=== PATIENT | male | born 1975 | race Caucasian/White ===

== ENCOUNTER 2018-07-31 22:27 | Emergency (ER) | payer MEDICARE, MEDICAID ==
[2018-07-31 23:05] LABS: ABSOLUTE BASOPHILS # (AUTO) 0.1 10^3/uL (0.0-0.2); ABSOLUTE EOSINOPHILS # (AUTO) 0.2 10^3/uL (0.0-0.6); ABSOLUTE LYMPHOCYTES (AUTO) 2.3 10^3/uL (0.5-4.7); ABSOLUTE MONOCYTES (AUTO) 0.6 10^3/uL (0.1-1.4); ABSOLUTE NEUT (AUTO) 3.6 10^3/uL (1.7-8.2); BASOPHILS % (AUTO) 1.1 % (0-2); EOSINOPHILS % (AUTO) 3.2 % (0-6); HEMATOCRIT 41.4 % (37.9-51.0); HEMOGLOBIN 14.2 g/dL (13.5-17.0); LYMPHOCYTES % (AUTO) 34.2 % (13-45); MEAN CORPUSCULAR HEMOGLOBIN 31.1 pg (27.0-33.4); MEAN CORPUSCULAR HGB CONC 34.3 g/dL (32.0-36.0); MEAN CORPUSCULAR VOLUME 91 fl (80-97); MONOCYTES % (AUTO) 9.3 % (3-13); PLATELET COUNT 251 10^3/uL (150-450); RED BLOOD COUNT 4.57 10^6/uL (4.35-5.55); RED CELL DISTRIBUTION WIDTH 13.2 % (11.5-14.0); SEGMENTED NEUTROPHILS % (AUTO) 52.2 % (42-78); TOTAL CELLS COUNTED % (AUTO) 100 %; WHITE BLOOD COUNT 6.9 10^3/uL (4.0-10.5)
[2018-07-31 23:26] LABS: ALANINE AMINOTRANSFERASE 23 U/L (21-72); ALKALINE PHOSPHATASE 95 U/L (38-126); ANION GAP 8 (5-19); ASPARTATE AMINO TRANSFERASE 20 U/L (17-59); BILIRUBIN,DIRECT 0.2 mg/dL (0.0-0.4); BILIRUBIN,TOTAL 0.6 mg/dL (0.2-1.3); BLOOD UREA NITROGEN 12 mg/dL (7-20); CALCIUM 9.2 mg/dL (8.4-10.2); CARBON DIOXIDE 27 mmol/L (22-30); CHLORIDE 104 mmol/L (98-107); CREATINE KINASE 124 U/L (55-170); GLUCOSE 100 mg/dL (75-110); POTASSIUM 3.8 mmol/L (3.6-5.0); SODIUM 138.7 mmol/L (137-145); TOTAL PROTEIN 6.9 g/dL (6.3-8.2)
[2018-07-31 23:29] LABS: ALCOHOL < 10 mg/dL (NONE DETECTED)
--- NOTE | 2018-07-31 23:41 | ER Document Report ---
ED General - General Chief Complaint: S/S of Possible Stroke Stated Complaint: WEAKNESS Time Seen by Provider: 07/31/18 22:50 Primary Care Provider: KELLIE CABRERA MD [Primary Care Provider] - Follow up as needed Cannot obtain history due to: Uncooperative Notes: Patient is a 42-year-old male with a past medical history of morbid obesity, previous TIAs, anxiety, and also states "I black out a lot". The patient states that ever since he had multiple TIAs he has frequent memory loss which his primary doctor is attributed to anxiety. He states that he takes clonazepam for this although he has not taken it today. The patient gives a waxing and waning history over the course of 20 minutes at the bedside. He states for the past 2 days he has felt like he "just cannot get things together". He states that he often has these types of episodes but they usually only last 1 day. States "I know he will not believe it but actually drove myself here to the hospital". The patient then proceeds to give me his full list of medications from memory, tells me his primary care doctor is full name, is able to tell me with whom he lives and their phone names, able to tell me his street address, and is completely oriented otherwise. However, when I do ask him the year the patient does take approximately 30 seconds to tell me the year. He denies that eating seems to improve or worsen his sensation of being disoriented. In triage the patient also stated that he had weakness in his bilateral hands. When asking how long this is been going on he says for 3 to 4 weeks. He has not seen his primary care doctor regarding today's concerns. Patient regards to symptoms as being severe. Constant in nature. Denies head or neck trauma. No alcohol or drug abuse. TRAVEL OUTSIDE OF THE [place] IN LAST 30 DAYS: No Past Medical History - General Information source: Patient - Social History Smoking Status: Never Smoker Frequency of alcohol use: None Drug Abuse: None Lives with: Family Family History: Reviewed & Not Pertinent Review of Systems - Review of Systems Notes: Constitutional: Negative for fever. HENT: Negative for sore throat. Eyes: Negative for visual changes. Cardiovascular: Negative for chest pain. Respiratory: Negative for shortness of breath. Gastrointestinal: Negative for abdominal pain, vomiting or diarrhea. Genitourinary: Negative for dysuria. Musculoskeletal: Negative for back pain. Skin: Negative for rash. Neurological: Positive for reported confusion, bilateral hand weakness 10 point ROS negative except as marked above and in HPI. Physical Exam - Vital signs Vitals: Temp Pulse Resp BP Pulse Ox 98.2 F 100 18 141/92 H 97 07/31/18 22:34 07/31/18 22:34 07/31/18 22:34 07/31/18 22:34 07/31/18 22:34 Interpretation: Hypertensive Notes: PHYSICAL EXAMINATION: GENERAL: Resting comfortably in no distress. HEAD: Atraumatic, normocephalic. EYES: Pupils equal round and reactive to light, extraocular movements intact, sclera anicteric, conjunctiva are normal. ENT: nares patent, oropharynx clear without exudates. Moist mucous membranes. NECK: Normal range of motion, supple without lymphadenopathy LUNGS: Breath sounds clear to auscultation bilaterally and equal. No wheezes rales or rhonchi. HEART: Regular rate and rhythm without murmurs ABDOMEN: Soft, nontender, normoactive bowel sounds. No guarding, no rebound. No masses appreciated. EXTREMITIES: Normal range of motion, no pitting or edema. No cyanosis. NEUROLOGICAL: Face symmetric. Tongue protrudes midline. Extraocular motions intact. Pupils are 2 mm and equally reactive. Normal speech, normal gait. 5 out of 5 strength in both the distal and proximal upper and lower extremities bilaterally. Sensation is grossly intact throughout. Finger to nose testing normal. Pronator drift normal. PSYCH: Alert, as described in history the patient states he is having disorientation but has full orientation x4 SKIN: Warm, Dry, normal turgor, no rashes or lesions noted. Course - Re-evaluation Re-evalutation: 07/31/18 23:39 Patient presents with allegations that he is having significant memory loss although does not appear to have any cognitive impairment of any kind during ex amination. The patient does not appear to be delirious nor does he have any form of cognitive impairment. He apparently has the symptoms "all the time" but is more concerned that he has been having them today for greater than 24 hours. I am concerned that there is a psychiatric component to the patient's presentation particular given lack of any objective evidence of true disorientation or confusion. He has absolutely no focal neurologic deficits on examination. No sensory deficits. His labs, CT head all unremarkable. Vitals are within normal limits. Exam, history and work-up are inconsistent with acute CVA, meningitis, encephalitis, brain abscess or alternative life-threatening condition. I have advised the patient to follow with his primary care doctor regarding this long-standing issue. At this time will discharge with return precautions and follow-up recommendations. Verbal discharge instructions given a the bedside and opportunity for questions given. Medication warnings reviewed. Patient is in agreement with this plan and has verbalized understanding of return precautions and the need for primary care follow-up in the next 24-72 hours. - Vital Signs Vital signs: Temp Pulse Resp BP Pulse Ox 98.2 F 100 18 141/92 H 97 07/31/18 22:34 07/31/18 22:34 07/31/18 22:34 07/31/18 22:34 07/31/18 22:34 - Laboratory Result Diagrams: 07/31/18 22:55 07/31/18 22:55 Laboratory results interpreted by me: 07/31/18 08/01/18 22:55 01:31 Ammonia < 8.7 L Ur Leukocyte Esterase TRACE H Discharge - Discharge Clinical Impression: Drowsiness, Morbid obesity, History of TIA (transient ischemic attack), Weakness Condition: Stable Disposition: HOME, SELF-CARE Additional Instructions: He was seen today for complaints of feeling disoriented or having decreased memory. There is no evidence at the time of your evaluation of disorientation, stroke, or any additional concerns. Your labs, CAT scan of your head, are all normal. The exact cause of your symptoms is uncertain but does not appear to be from a life-threatening condition, an acute stroke, seizures or any alternative concern at this time. However the exact cause is uncertain and she should therefore have a low threshold to return to the emergency department for any new or worsening symptoms. It is also important that you follow-up with your primary care doctor within the next 24 to 48 hours for reassessment. You should return immediately if you develop focal weakness, severe headache, fever of greater than 100.4 F, persistent vomiting, or any other symptoms that are concerning to you. Referrals: KELLIE CABRERA MD [Primary Care Provider] - Follow up tomorrow
--- NOTE | 2018-08-01 01:02 | RADIOLOGY REPORT (SQ) ---
CT HEAD WITHOUT IV CONTRAST EXAM DATE: 07/31/2018 10:51 PM CDT HISTORY: AMS. COMPARISON: None. TECHNIQUE: CT scan of the brain without IV contrast. This exam was performed according to our departmental dose-optimization program, which includes automated exposure control, adjustment of the mA and/or kV according to patient size and/or use of iterative reconstruction technique. FINDINGS: The ventricles, cisterns, and sulci are age-appropriate. No evidence of acute infarction, intracranial hemorrhage, extra-axial fluid collection, or midline shift. No air-fluid levels are seen in the paranasal sinuses to suggest acute sinusitis. No depressed skull fracture. IMPRESSION: No acute intracranial findings.
[2018-08-01 01:42] LABS: APPEARANCE,URINE CLEAR; BILIRUBIN,URINE NEGATIVE (NEGATIVE); COLOR,URINE YELLOW; GLUCOSE, URINE NEGATIVE (NEGATIVE); KETONES,URINE NEGATIVE (NEGATIVE); LEUKOCYTE ESTERASE,URINE TRACE (NEGATIVE); NITRITE,URINE NEGATIVE (NEGATIVE); PROTEIN,URINE NEGATIVE (NEGATIVE); URINE SPECIFIC GRAVITY 1.024; UROBILINOGEN,URINE NEGATIVE mg/dL (<2.0)
[2018-08-01 01:57] LABS: URINE AMPHETAMINES SCREEN NEGATIVE; URINE BARBITURATES SCREEN NEGATIVE; URINE BENZODIAZEPINES SCREEN UNCONFIRMED POSITIVE; URINE COCAINE SCREEN NEGATIVE; URINE MARIJUANA (THC) SCREEN NEGATIVE; URINE METHADONE SCREEN NEGATIVE; URINE PHENCYCLIDINE SCREEN NEGATIVE
[2018-08-01 03:06] VITALS: BP 135/97
== END 2018-08-01 03:06 | disposition home or self-care (01) ==
LOC: ER 22:27
DX: R53.1 Weakness (principal); R40.0 Somnolence; Z86.73 Personal history of transient ischemic attack (TIA), and cerebral infarction without residual deficits; E66.01 Morbid (severe) obesity due to excess calories
CPT/HCPCS: 36415; 70450; 80053; 80307; 81001; 82140; 82550; 84484; 85025; 99285

== ENCOUNTER 2018-12-13 15:52 | Emergency (ER) | payer MEDICARE, MEDICAID ==
[2018-12-13 15:56] VITALS: BP 141/69
--- NOTE | 2018-12-13 16:05 | ER Document Report ---
ED Medical Screen (RME) - General Chief Complaint: Fall Stated Complaint: FALL/HEAD AND BACK PAIN Time Seen by Provider: 12/13/18 16:01 Primary Care Provider: KELLIE CABRERA MD [Primary Care Provider] - Follow up as needed Mode of Arrival: Ambulatory Information source: Patient Notes: 43-year-old male presented to ED for complaint of head and back pain. He states he was a foot up on a ladder when his mastiff Ojebuoboh from under him causing him to fall about 8 feet. He states he did lose consciousness at the time but he is unaware of how long because no one else besides the mastiff was there with him. He states this was Wednesday when he fell. He thought he could take care of himself but he is getting more of a headache, back pain, and blurred vision and nausea. States he is also so been off balance a little. He is alert and oriented and answering questions appropriately at this time. States he has tramadol from his chronic back pain and he took that at the house. He states he took his anxiety medicine also. He states he smokes 3 cigarettes he is quitting, he does no drugs and he drinks maybe 1 beer on those Wednesday with his father. I have greeted and performed a rapid initial assessment of this patient. A comprehensive ED assessment and evaluation of the patient, analysis of test results and completion of medical decision making process will be conducted by an additional ED providers. TRAVEL OUTSIDE OF THE [place] IN LAST 30 DAYS: No - Related Data Allergies/Adverse Reactions: No Known Allergies Allergy (Verified 12/13/18 15:58) Past Medical History Renal/ Medical History: Denies: Hx Peritoneal Dialysis Physical Exam - Vital signs Vitals: Temp Pulse Resp BP Pulse Ox 97.6 F 79 18 141/69 H 100 12/13/18 15:55 12/13/18 15:55 12/13/18 15:55 12/13/18 15:55 12/13/18 15:55 Course - Vital Signs Vital signs: Temp Pulse Resp BP Pulse Ox 97.6 F 79 18 141/69 H 100 12/13/18 15:55 12/13/18 15:55 12/13/18 15:55 12/13/18 15:55 12/13/18 15:55 Doctor's Discharge - Discharge Referrals: KELLIE CABRERA MD [Primary Care Provider] - Follow up as needed
[2018-12-13 16:35] LABS: ABSOLUTE BASOPHILS # (AUTO) 0.1 10^3/uL (0.0-0.2); ABSOLUTE EOSINOPHILS # (AUTO) 0.1 10^3/uL (0.0-0.6); ABSOLUTE LYMPHOCYTES (AUTO) 2.3 10^3/uL (0.5-4.7); ABSOLUTE MONOCYTES (AUTO) 0.6 10^3/uL (0.1-1.4); ABSOLUTE NEUT (AUTO) 5.4 10^3/uL (1.7-8.2); BASOPHILS % (AUTO) 1.1 % (0-2); EOSINOPHILS % (AUTO) 1.3 % (0-6); HEMATOCRIT 45.7 % (37.9-51.0); HEMOGLOBIN 15.8 g/dL (13.5-17.0); LYMPHOCYTES % (AUTO) 26.9 % (13-45); MEAN CORPUSCULAR HEMOGLOBIN 31.8 pg (27.0-33.4); MEAN CORPUSCULAR HGB CONC 34.7 g/dL (32.0-36.0); MEAN CORPUSCULAR VOLUME 92 fl (80-97); MONOCYTES % (AUTO) 6.7 % (3-13); PLATELET COUNT 230 10^3/uL (150-450); RED BLOOD COUNT 4.98 10^6/uL (4.35-5.55); RED CELL DISTRIBUTION WIDTH 13.2 % (11.5-14.0); TOTAL CELLS COUNTED % (AUTO) 100 %; WHITE BLOOD COUNT 8.5 10^3/uL (4.0-10.5)
[2018-12-13 16:41] LABS: APPEARANCE,URINE CLEAR; BILIRUBIN,URINE NEGATIVE (NEGATIVE); COLOR,URINE YELLOW; GLUCOSE, URINE NEGATIVE (NEGATIVE); KETONES,URINE NEGATIVE (NEGATIVE); PROTEIN,URINE NEGATIVE (NEGATIVE); URINE SPECIFIC GRAVITY 1.019; UROBILINOGEN,URINE NEGATIVE mg/dL (<2.0)
[2018-12-13 16:56] LABS: ALBUMIN 4.3 g/dL (3.5-5.0); ALKALINE PHOSPHATASE 112 U/L (38-126); ANION GAP 11 (5-19); ASPARTATE AMINO TRANSFERASE 20 U/L (17-59); BILIRUBIN,DIRECT 0.2 mg/dL (0.0-0.4); BILIRUBIN,TOTAL 0.8 mg/dL (0.2-1.3); BLOOD UREA NITROGEN 14 mg/dL (7-20); CALCIUM 9.3 mg/dL (8.4-10.2); CARBON DIOXIDE 25 mmol/L (22-30); CHLORIDE 105 mmol/L (98-107); GLUCOSE 95 mg/dL (75-110); POTASSIUM 4.4 mmol/L (3.6-5.0); TOTAL PROTEIN 7.3 g/dL (6.3-8.2)
--- NOTE | 2018-12-13 17:41 | ER Document Report ---
ED Fall - General Chief Complaint: Fall Stated Complaint: FALL/HEAD AND BACK PAIN Time Seen by Provider: 12/13/18 16:01 Primary Care Provider: KELLIE CABRERA MD [ACTIVE STAFF] - Follow up as needed Mode of Arrival: Ambulatory Information source: Patient TRAVEL OUTSIDE OF THE [place] IN LAST 30 DAYS: No - HPI Patient complains to provider of: fall/head trauma Occurred: Other - pt fell off stepstool 2 days ago and hit head. He had a LOC for a brief period of time. He has had some nausea and RIZO since that time. He denies neck pain - Related data Allergies/Adverse Reactions: rofecoxib [From Vioxx] Allergy (Verified 12/13/18 16:04) Past Medical History - Social History Smoking Status: Current Some Day Smoker Chew tobacco use (# tins/day): No Frequency of alcohol use: None Family History: Reviewed & Not Pertinent Patient has suicidal ideation: No Patient has homicidal ideation: No Neurological Medical History: Reports: Hx Migraine Renal/ Medical History: Denies: Hx Peritoneal Dialysis Past Surgical History: Reports: Hx Abdominal Surgery - hernia, Hx Appendectomy, Hx Nose Surgery - x2, Hx Orthopedic Surgery - back fusion, L knee replacement Review of Systems - Review of Systems Constitutional: No symptoms reported EENT: No symptoms reported Cardiovascular: No symptoms reported Respiratory: No symptoms reported Gastrointestinal: See HPI, Nausea Musculoskeletal: No symptoms reported Neurological/Psychological: See HPI, Headaches -: Yes All other systems reviewed and negative Physical Exam - Vital signs Vitals: Temp Pulse Resp BP Pulse Ox 97.6 F 79 18 141/69 H 100 12/13/18 15:55 12/13/18 15:55 12/13/18 15:55 12/13/18 15:55 12/13/18 15:55 - General General appearance: Appears well In distress: None - HEENT Head: Normocephalic Pupils: PERRL Mucous membranes: Normal Pharynx: Normal Neck: Normal - Respiratory Respiratory status: No respiratory distress Breath sounds: Normal - Cardiovascular Rhythm: Regular Heart sounds: Normal auscultation Murmur: No - Abdominal Bowel sounds: Normal Tenderness: Nontender Organomegaly: No organomegaly - Extremities General upper extremity: Normal inspection General lower extremity: Normal inspection - Neurological Neuro grossly intact: Yes Cognition: Normal Orientation: AAOx4 Speech: Normal Cranial nerves: Normal Motor strength normal: LUE, RUE, LLE, RLE Additional motor exam normals: Equal sliver chopper Sensory: Normal Course - Re-evaluation Re-evalutation: 12/13/18 17:41 I have this pt. to get a CT head tonight but he has refused, stating he needs to fly out of town tonight for work. I have told him that he needs to be seen HEIDI if his symptoms worsen in any way or her develops any focal neurologic deficit. - Vital Signs Vital signs: Temp Pulse Resp BP Pulse Ox 97.6 F 79 18 141/69 H 100 12/13/18 15:55 12/13/18 15:55 12/13/18 15:55 12/13/18 15:55 12/13/18 15:55 - Laboratory Result Diagrams: 12/13/18 16:22 12/13/18 16:22 Laboratory results interpreted by me: 12/13/18 16:22 Urine Blood SMALL H Discharge - Discharge Clinical Impression: Head trauma Qualifiers: Encounter type: initial encounter Qualified Code(s): S09.90XA - Unspecified injury of head, initial encounter Condition: Stable Disposition: HOME, SELF-CARE Additional Instructions: rest, head injury instructions, take meds as prescribed, return if worse Prescriptions: Tramadol HCl [Ultram] 50 mg PO BID #14 tablet Ondansetron HCl [Zofran 4 mg Tablet] 1 - 2 tab PO Q4H PRN #10 tablet PRN Reason: Referrals: KELLIE CABRERA MD [ACTIVE STAFF] - Follow up as needed
[2018-12-13 17:45] LABS: URINE AMPHETAMINES SCREEN NEGATIVE; URINE BARBITURATES SCREEN NEGATIVE; URINE BENZODIAZEPINES SCREEN NEGATIVE; URINE COCAINE SCREEN NEGATIVE; URINE MARIJUANA (THC) SCREEN NEGATIVE; URINE METHADONE SCREEN NEGATIVE; URINE PHENCYCLIDINE SCREEN NEGATIVE
== END 2018-12-13 17:54 | disposition home or self-care (01) ==
LOC: ER 15:52
DX: S09.90XA Unspecified injury of head, initial encounter (principal); R51 Headache; M54.9 Dorsalgia, unspecified; R11.0 Nausea; W17.89XA Other fall from one level to another, initial encounter; F17.200 Nicotine dependence, unspecified, uncomplicated
CPT/HCPCS: 36415; 80053; 80307; 81001; 85025; 99283

== ENCOUNTER 2019-12-22 11:01 | Emergency (ER) | payer MEDICARE, MEDICAID ==
[2019-12-22 11:14] VITALS: BP 150/88
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
[2019-12-22 12:13] LABS: ABSOLUTE BASOPHILS # (AUTO) 0.1 10^3/uL (0.0-0.2); ABSOLUTE EOSINOPHILS # (AUTO) 0.1 10^3/uL (0.0-0.6); ABSOLUTE LYMPHOCYTES (AUTO) 1.6 10^3/uL (0.5-4.7); ABSOLUTE MONOCYTES (AUTO) 0.3 10^3/uL (0.1-1.4); ABSOLUTE NEUT (AUTO) 3.5 10^3/uL (1.7-8.2); BASOPHILS % (AUTO) 1.2 % (0-2); EOSINOPHILS % (AUTO) 2.2 % (0-6); HEMATOCRIT 43.4 % (37.9-51.0); HEMOGLOBIN 14.9 g/dL (13.5-17.0); LYMPHOCYTES % (AUTO) 28.8 % (13-45); MEAN CORPUSCULAR HEMOGLOBIN 31.1 pg (27.0-33.4); MEAN CORPUSCULAR HGB CONC 34.2 g/dL (32.0-36.0); MEAN CORPUSCULAR VOLUME 91 fl (80-97); MONOCYTES % (AUTO) 6.1 % (3-13); PLATELET COUNT 190 10^3/uL (150-450); RED BLOOD COUNT 4.77 10^6/uL (4.35-5.55); RED CELL DISTRIBUTION WIDTH 13.8 % (11.5-14.0); SEGMENTED NEUTROPHILS % (AUTO) 61.7 % (42-78); TOTAL CELLS COUNTED % (AUTO) 100 %; WHITE BLOOD COUNT 5.7 10^3/uL (4.0-10.5)
--- NOTE | 2019-12-23 09:23 | EKG REPORT ---
SEVERITY:- ABNORMAL ECG - SINUS RHYTHM NONSPECIFIC INTRAVENTRICULAR CONDUCTION DELAY : Confirmed by: Joseph Nelson 23-Dec-2019 09:21:42
== END 2019-12-22 20:54 | disposition left against medical advice (07) ==
LOC: ER 11:01
DX: Z53.21 Procedure and treatment not carried out due to patient leaving prior to being seen by health care provider (principal)
CPT/HCPCS: 36415; 71046; 82550; 83735; 84484; 85025; 93005; 93010; 99281